=== PATIENT | female | born 1970 | race Caucasian/White ===

== ENCOUNTER → 2019-06-17 12:21 | Outpatient (BNVA) | payer MEDICARE, MEDICAID, SELFPAY | PROVIDERS: Family Provider Internal Medicine; PCP Internal Medicine; Visit Provider Nurse Practitioner Family | DX: R35.0 Frequency of micturition (principal); N39.0 Urinary tract infection, site not specified; B95.2 Enterococcus as the cause of diseases classified elsewhere | CPT/HCPCS: 81003; 87086 ==

== ENCOUNTER → 2019-09-16 15:50 | Outpatient (BNVA) | payer MEDICARE, MEDICAID, SELFPAY | PROVIDERS: Family Provider Internal Medicine; PCP Internal Medicine; Referring Provider Family Medicine; Visit Provider Family Medicine | DX: R94.4 Abnormal results of kidney function studies (principal) | CPT/HCPCS: 80053; 85007; 85027 ==

== ENCOUNTER 2019-11-04 13:48 | Outpatient (CLI) | payer MEDICARE, MEDICAID, SELFPAY ==
--- NOTE | 2019-11-04 13:55 | US_ITS ---
WS: [id number] ULTRASOUND RENAL TECHNIQUE: Ultrasound examination of both kidneys. CLINICAL INFORMATION: IMPAIRED RENAL FUNCTION COMPARISON: None. FINDINGS: RIGHT: Right kidney is normal in size and appearance. Echogenicity: Normal. Cortical thickness: 1.0 cm; Normal. Hydronephrosis: None. Perinephric fluid: None. Right kidney measures: 12.2 cm x 4.4 cm x 3.2 cm. LEFT: Moderate left hydronephrosis. Dilation of the renal pelvis and UPJ Echogenicity: Normal. Cortical thickness: 1.0 cm; Normal. Hydronephrosis: Moderate Perinephric fluid: None. Left kidney measures: 11.5 cm x 4.3 cm x 4.0 cm. Normal visualized aorta. US/US renal BI* [id number] IMPRESSION: 1. Moderate hydronephrosis left kidney with dilated renal pelvis. This could b e further evaluated with CT abdomen pelvis to evaluate for distal obstruction. 2. No hydronephrosis in right kidney. 3. Normal bladder.
== END 2019-11-04 13:49 | disposition home or self-care (01) ==
LOC: RAD 13:52
PROVIDERS: Family Provider Internal Medicine; PCP Internal Medicine; Visit Provider Nurse Practitioner Family
DX: R94.4 Abnormal results of kidney function studies (principal); N13.30 Unspecified hydronephrosis
CPT/HCPCS: 76770

== ENCOUNTER 2019-11-12 13:44 | Outpatient (CLI) | payer MEDICARE, MEDICAID, SELFPAY ==
--- NOTE | 2019-11-12 13:54 | CT_ITS ---
WS: [id number] CT ABDOMEN PELVIS TECHNIQUE: Noncontrast CT of the abdomen and pelvis with coronal and sagittal reformatted images. CLINICAL INFORMATION: HYDRONEPHROSIS, LEFT COMPARISON: None. DLP: 1053.[address] scans at [facility] use at least one of these dose optimization techniques: automat ed exposure control; mA and/or kV adjustment per patient size (includes targeted exams where dose is matched to clinical indication); or iterative reconstruction. FINDINGS: Mild hepatomegaly and splenomegaly. Cholecystectomy clips. Lung bases are well aerated. Normal GE dane ction. Tiny fat-containing umbilical hernia. No hydronephrosis in right kidney. Right ureter is decompressed. Persistent moderate left hydronephro sis similar in appearance to the prior ultrasound. Dilatation of the renal pelvis and proximal UPJ. L eft ureter is difficult to visualize but appears decompressed. Pelvic phleboliths. No evidence of obs tructing ureteral calculus. Findings suspicious for UPJ stricture. No evidence of small or large bowel obstruction. No other significant findings. CT/CT kidney stone [id number] IMPRESSION: 1. Moderate left hydronephrosis with dilatation of the left renal pelvis and U PJ suspicious for UPJ stricture or stenosis. Left ureter appears decompressed. Consider urology consultation. 2. No obstructing renal or ureteral calculi. 3. Mild hepatomegaly and splenomegaly. 4. No other significant findings.
== END 2019-11-12 13:45 | disposition home or self-care (01) ==
LOC: RADWPI 13:49
PROVIDERS: Family Provider Internal Medicine; PCP Internal Medicine; Visit Provider Nurse Practitioner Family
DX: N13.30 Unspecified hydronephrosis (principal); R16.2 Hepatomegaly with splenomegaly, not elsewhere classified
CPT/HCPCS: 74176

== ENCOUNTER 2019-11-27 13:27 | Outpatient (CLI) | payer MEDICARE, MEDICAID, SELFPAY ==
--- NOTE | 2019-11-27 13:33 | MM_ITS ---
WS: [id number] Bilateral screening digital mammogram, 11/27/2019 Clinical Data: SCREENING Comparison: 02/13/2014 Findings: The breast parenchymal pattern shows heterogeneous density No spiculated masses or clustered calcific ations are seen. There are no secondary signs of carcinoma. MM/[place] [id number] Impression: 1. Negative bilateral mammogram unchanged. 2. Recommend annual screening mammograms. BIRADS: 1-Negative FOLLOW UP: 1 Year Follow-up The CAD radio program checker was used.
== END 2019-11-27 13:28 | disposition home or self-care (01) ==
LOC: RADSHAW 13:30
PROVIDERS: PCP Internal Medicine; Visit Provider Nurse Practitioner Family
DX: Z12.31 Encounter for screening mammogram for malignant neoplasm of breast (principal)
CPT/HCPCS: 77067

== ENCOUNTER → 2019-12-03 13:46 | Outpatient (BNVA) | payer MEDICARE, MEDICAID, SELFPAY | PROVIDERS: PCP Internal Medicine; Visit Provider Urology | DX: N39.0 Urinary tract infection, site not specified (principal); N13.5 Crossing vessel and stricture of ureter without hydronephrosis; F17.210 Nicotine dependence, cigarettes, uncomplicated | CPT/HCPCS: 81001 ==

== ENCOUNTER 2019-12-23 11:59 | Outpatient (CLI) | payer MEDICARE, MEDICAID, SELFPAY ==
--- NOTE | 2019-12-23 12:06 | NMR_ITS ---
PROCEDURE INFORMATION: Exam: AL Kidney Imaging with Vascular Flow and Function, Single Study, with Pharmacological Intervention Exam date and time: 12/23/2019 12:07 PM Age: 49 years old Clinical indication: Condition or disease; Other: Ureteropelvic junction obstruction, left; Prior surgery; Surgery type: Hysterectomy cholecystectomy TECHNIQUE: Imaging protocol: Kidney imaging morphology with angiographic images were obtained after diuretic or MAAME inhibitor was administered and additional planar images were obtained. after radiopharmaceutical administration. This radiotracer utilized for calculation of the GFR. Radiopharmaceutical: 10.3 mCi tc99m DTPA iv COMPARISON: CT kidney stone [id number] 11/12/2019 2:01 PM FINDINGS: Medications: The Lasix renogram was performed using 20 mg of Lasix at 10 minutes Kidneys: Renal perfusion is symmetric, 51% to the left kidney and 49% of the right. However renal uptake is asymmetric with 42% on the left and 58% on the right. Excretion from the left kidney is slightly prolonged relative to the right with T1 half of 95 minutes. Left renal function: Left 42 % at 2 to 3 minutes. Right renal function: Right 58 % at 2 to 3 minutes. Left renal GFR: Left calculated GFR (ml/min) is 51. Right renal GFR: Right calculated GFR (ml/min) is 71. Post Lasix Left Kidney: Left T1/2 undefined after Lasix, flat curve. Post Lasix Right kidney: Right T1/2 is 95 minutes after Lasix. Visual analysis of the kidneys indicates diminished left renal concentration and excretion greater than reflected in the calculated values. There is no significant diuresis with Lasix. Limitations: Both the liver and spleen are enlarged and partially overlap the kidneys. This technically limits isolating the renal activity NM/NM renal flow w pharm [id number] IMPRESSION: Diminished left renal function, limiting excretion No significant defect of diuresis on the left kidney. Right renal excretion is normal
== END 2019-12-23 12:00 | disposition home or self-care (01) ==
PROVIDERS: PCP Internal Medicine; Visit Provider Urology
DX: N13.5 Crossing vessel and stricture of ureter without hydronephrosis (principal)
CPT/HCPCS: 78708; A9539

== ENCOUNTER 2020-06-16 15:23 | Emergency (ER) | payer MEDICARE, MEDICAID, SELFPAY ==
[2020-06-16 15:34] VITALS: BP 102/66; PULSE 78; RESP 16; TEMP 36.6; O2SAT 99; BMI 37.8
--- NOTE | 2020-06-16 17:12 | W.ED.GENADLT ---
Documented by User: PASHA Flores 06/16/20 20:30 HPI - General Adult General: Chief complaint: General Medical Stated complaint: high potassium/abnormal labs from primary DR. Time Seen by Provider: 06/16/20 17:11 History of Present Illness: HPI narrative: Patient is a 49-year-old female who comes to the ED because her support group manager saw her yesterday and performed labs and they showed hyperkalemia. Past medical history of hypertension, GERD and kidney stones. 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 patient saw her support group manager yesterday and they removed a stent from one of her kidneys. She denies any current symptoms while here in the ED and states she feels normal. She states that last night she did urinate a lot throughout the night. Denies any blood in the urine last night or pain when she urinated last night. Denies flank pain, dysuria, hematuria, fever, chills, chest pain, shortness of breath, heart palpitations, abdominal pain, nausea/vomiting, diarrhea or blood in stool. Associated symptoms: Deny chest pain, dyspnea, headache(s), nausea, rash, palpitations or vomiting Review of Systems Narrative: Patient was sent here due to hyperkalemia lab. She reports no current symptoms. Const: Denies: fever(s), chills or fatigue Eyes: Denies: change in vision or eye discomfort ENMT: Denies: throat pain, odynophagia, nasal discharge or nasal congestion Card: Denies: chest pain, palpitations, edema, swelling of feet/ankles, dyspnea on exertion or orthopnea Resp: Denies: dyspnea, productive cough or non-productive cough GI: Denies: abdominal pain, nausea, vomiting, diarrhea, constipation or hematochezia : Denies: flank pain, dysuria or hematuria Musc: Denies: neck pain, back pain or extremity swelling Skin/Breast: Denies: rash or new lesions Neuro: Denies: headache(s), numbness in extremities or weakness in extremities [facility] PFSH: Medical History GERD (gastroesophageal reflux disease) History of hepatitis C Type 3a. 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 Has had 3 surgeries with recurrence of the fistula. Evaluated at [facility] in 2018 and declined further treatment. Recurrent UTI Smoking Ureteropelvic junction (UPJ) obstruction, left Surgical History H/O total vaginal hysterectomy (02/11/19) TVH, BSO, Anterior colporrhaphy. [place] [facility] [place]. H/O tubal ligation (~2007) Performed in [place] H/O vaginal surgery Reports 3 different perineal/vaginal repairs for treatment of rectovaginal fistula. First surgery performed in [place], [place]. History of liver biopsy (~2007) Performed in [place]. Hx laparoscopic cholecystectomy (~2008) Performed in [place], [place]. Family History Grandmother Hypertension Mother , at age 66 Hypertension Heart attack Father CAD (coronary artery disease) Grandfather CAD (coronary artery disease) Sister Diabetes Social History Smoking and tobacco status: current every day smoker Alcohol intake: current Alcohol intake frequency: holidays/special occasions only Adopted: No Marital status: Current occupational status: disabled History of recent travel: No Current gender identity: Female Physical Exam Const: COMMON NORMALS: no acute distress, patient oriented x3, healthy appearing and alert GENERAL APPEARANCE: cooperative and comfortable HENMT: COMMON NORMALS: normocephalic HEAD & SCALP: normocephalic MOUTH: Normal oral and palatal mucosa present THROAT: posterior oropharynx normal and uvula midline Eye: COMMON NORMALS: Equal, round and reactive pupils present and conjunctivae normal CONJUNCTIVA: Yes conjunctivae normal PUPIL: Yes Equal, round and reactive pupils present Neck/C-Spine: COMMON NORMALS: supple GENERAL: Yes normal visual inspection Resp: COMMON NORMALS: normal respiratory effort, No retractions, No use of accessory muscles and clear to auscultation bilaterally AUSCULTATION: clear to auscultation bilaterally Cardio: COMMON NORMALS: regular rate, regular rhythm, S1 normal heart sound present, S2 normal heart sound present, No gallops present (Cardio), No clicks present (Cardio), No murmurs present (Cardio) and Peripheral pulses 2+ throughout RATE: regular rate RHYTHM: regular rhythm HEART SOUNDS: S1 normal heart sound present and S2 normal heart sound present PERIPHERAL PULSES: Peripheral pulses 2+ throughout GI: COMMON NORMALS: Normal to inspection, nondistended, normoactive bowel sounds present, Soft to palpation, non-tender and no masses PALPATION: Yes Soft to palpation : COMMON NORMALS: Yes no CVA tenderness BLADDER/KIDNEY EXAM: Yes no CVA tenderness Back/Pelvis: COMMON NORMALS: no CVA tenderness Extremity: COMMON NORMALS: normal to inspection and no pedal edema Neuro: COMMON NORMALS: patient oriented x3 and moves all extremities SENSORIUM/ORIENTATION: Yes alert Skin: GENERAL SKIN EXAM: dry skin Course Vital Signs: Vital signs: Vital Signs Temperature 97.9 F 06/16/20 15:34 Pulse Rate 71 06/16/20 18:31 Respiratory Rate 18 06/16/20 18:31 Blood Pressure 124/71 06/16/20 18:31 Pulse Oximetry 99 06/16/20 18:31 MDM - General Adult MDM Narrative: Medical decision making narrative: Patient is a 49-year-old female comes to the ED because her support group manager told her her the labs performed yesterday showed hyperkalemia. Patient comes to the ED with no symptoms and says she feels completely normal and has no complaints. EKG showed normal sinus rhythm at 66 bpm and there were some larger spike T waves in lead II of her EKG. CBC was unremarkable. Sodium 131, potassium 6.4 and creatinine of 2.2. Patient was refusing IV. I discussed patient case with Dr. Cramer and he was going to take over case due to acuity of elevated potassium levels. I went and spoke with patient told her that Will be coming to see her. She agreed to see Dr. Griffin and to speak with him but she did state that she would like to go home and does not want to get any further treatment and feels normal for discharge. I explained to her the seriousness of elevated potassium and she understood the risks. Dr. Cramer then came in and spoke with patient about care plan. Lab Data: Labs: Lab Results 06/16/20 06/16/20 06/16/20 Range/Units 18:08 18:26 18:26 WBC 5.8 (4.0-10.0) 10^3/ uL RBC 4.09 L (4.1-5.3) 10^6/u L Hgb 11.8 (11.5-15.3) g/dL Hct 36.6 L (37.0-47.0) % MCV 89.5 (81-99) fL MCH 28.9 (28.0-34.0) pg MCHC 32.2 (30.0-36.0) g/dL RDW 12.8 (12.1-15.1) % Plt Count 113 L (130-400) 10^3/c mm MPV 12.0 H (7.4-10.4) fL Neut % (Auto) 63.2 % Lymph % (Auto) 25.3 % [place] % (Auto) 4.0 % Eos % (Auto) 6.7 % Baso % (Auto) 0.3 % Neut # (Auto) 3.65 (1.8-7.7) 10^3/u L Lymph # (Auto) 1.5 (0.8-4.8) 10^3/u L [place] # (Auto) 0.2 (0.2-0.9) 10^3/u L Eos # (Auto) 0.4 (0.0-0.8) 10^3/u L Baso # (Auto) 0.0 (0.0-0.1) 10^3/u L Nucleated RBC % (a uto) 0 % Nucleated RBCs # 0.0 /100WBC Sodium 131 L (136-145) mmol/L Potassium 6.4 H (3.5-5.1) mmol/L Chloride 104 (98-107) mmol/L Carbon Dioxide 21 L (22-29) mmol/L Anion Gap 12.4 (5-19) BUN 24 H (6-20) mg/dL Creatinine 2.2 H (0.5-0.9) mg/dL GFR Calculation 23.8 L (90-130) mL/min Glucose 91 (65-115) mg/dL Calculated Osmolal ity 276 L (285-295) mOsm/k g Calcium 9.3 (8.5-10.5) mg/dL Phosphorus 4.5 (2.5-4.5) mg/dL Magnesium 1.7 (1.7-2.3) mg/dL Total Bilirubin 0.2 (0.15-1.2) mg/dL AST 15 (0-32) U/L ALT 13 (0-33) U/L Alkaline Phosphata se 116 H (35-105) IU/L Total Protein 8.1 (6.6-8.7) g/dL Albumin 4.4 (3.5-5.2) g/dL Globulin 3.7 (1.3-4.6) g/dL HCG, Qual (Negative) Urine Color Yellow (Yellow) Urine Appearance Clear (CLEAR) Urine pH 5 (5-7) Ur Specific Gravit y 1.015 (1.005-1.030) Urine Protein Neg (Negative) Urine Glucose (UA) Norm (Normal) Urine Ketones Negative (Negative) Urine Blood Neg (Negative) Urine Nitrate Negative (Negative) Urine Bilirubin Neg (Negative) Urine Urobilinogen Norm (Negative) mg/dL Ur Leukocyte Angelica ase Negative (Negative) Urine RBC None (0-2) /hpf Urine WBC 0-4 H (0-5) /hpf Ur Squamous Epith Cells 10-15 H (0-5) /hpf Amorphous Sediment Not Reportable Urine Bacteria Trace (NONE) /hpf 06/16/20 Range/Units 18:26 WBC (4.0-10.0) 10^3/ uL RBC (4.1-5.3) 10^6/u L Hgb (11.5-15.3) g/dL Hct (37.0-47.0) % MCV (81-99) fL MCH (28.0-34.0) pg MCHC (30.0-36.0) g/dL RDW (12.1-15.1) % Plt Count (130-400) 10^3/c mm MPV (7.4-10.4) fL Neut % (Auto) % Lymph % (Auto) % [place] % (Auto) % Eos % (Auto) % Baso % (Auto) % Neut # (Auto) (1.8-7.7) 10^3/u L Lymph # (Auto) (0.8-4.8) 10^3/u L [place] # (Auto) (0.2-0.9) 10^3/u L Eos # (Auto) (0.0-0.8) 10^3/u L Baso # (Auto) (0.0-0.1) 10^3/u L Nucleated RBC % (a uto) % Nucleated RBCs # /100WBC Sodium (136-145) mmol/L Potassium (3.5-5.1) mmol/L Chloride (98-107) mmol/L Carbon Dioxide (22-29) mmol/L Anion Gap (5-19) BUN (6-20) mg/dL Creatinine (0.5-0.9) mg/dL GFR Calculation (90-130) mL/min Glucose (65-115) mg/dL Calculated Osmolal ity (285-295) mOsm/k g Calcium (8.5-10.5) mg/dL Phosphorus (2.5-4.5) mg/dL Magnesium (1.7-2.3) mg/dL Total Bilirubin (0.15-1.2) mg/dL AST (0-32) U/L ALT (0-33) U/L Alkaline Phosphata se (35-105) IU/L Total Protein (6.6-8.7) g/dL Albumin (3.5-5.2) g/dL Globulin (1.3-4.6) g/dL HCG, Qual Negative (Negative) Urine Color (Yellow) Urine Appearance (CLEAR) Urine pH (5-7) Ur Specific Gravit y (1.005-1.030) Urine Protein (Negative) Urine Glucose (UA) (Normal) Urine Ketones (Negative) Urine Blood (Negative) Urine Nitrate (Negative) Urine Bilirubin (Negative) Urine Urobilinogen (Negative) mg/dL Ur Leukocyte Angelica ase (Negative) Urine RBC (0-2) /hpf Urine WBC (0-5) /hpf Ur Squamous Epith Cells (0-5) /hpf Amorphous Sediment Urine Bacteria (NONE) /hpf EKG Data^: EKG 1: Attestation: I personally reviewed and interpreted this EKG as follows: EKG interpretation date: 06/16/20 Interpretation: Normal sinus rhythm, 66 bpm, larger spiked T waves in lead II. Discharge Plan Discharge Patient Disposition: Left Against Medical Advice Clinical Impression: Acute hyperkalemia Condition: Serious Prescriptions: No Action albuterol sulfate 90 mcg/actuation HFA aerosol inhaler 2 puff inhalation Q6H PRN (Reason: shortness of breath or wheezing) Qty: 8.5 RF: 0 lisinopril 20 mg tablet 20 mg PO DAILY@1000 RF: 0 pantoprazole 40 mg tablet,delayed release (DR/EC) 40 mg PO DAILY@1000 RF: 0 buprenorphine-naloxone [Suboxone] 2-0.5 mg film 1 film BUCCAL BID@1000,2200 RF: 0 hydroxyzine HCl 50 mg tablet 50 mg PO TID@10,12,22 RF: 0 diphenhydramine HCl [Benadryl] 25 mg capsule 25 mg PO TID PRN (Reason: Allergy Symptoms) RF: 0 spironolactone 25 mg tablet 25 mg PO DAILY@1000 RF: 0 omega-3 fatty acids [Fish Oil Concentrate] 1,000 mg capsule 1,000 mg PO DAILY@1000 RF: 0 psyllium husk [Daily Fiber] 0.4 gram capsule 0.4 gm PO DAILY@1000 RF: 0 tizanidine 4 mg capsule 4 mg PO BID@1000,2200 RF: 0 Vitamin B-12 1 tab PO DAILY@1000 RF: 0 magnesium 1 tab PO DAILY@1000 RF: 0 Advair Diskus 250-50 mcg/dose blister with device 1 inh inhalation BID@999,2199 RF: 0 estradiol 1 mg tablet 1 mg PO DAILY@1000 RF: 0 ondansetron HCl 8 mg tablet 8 mg PO Q8H PRN (Reason: nausea/vomiting) RF: 0 Referrals: Lilliana Penny DO [Primary Care Provider] - Coding Level of Care Code ED Poll Clerk for Chg Fwd Exam Comprehensive Documented by User: Alex Cramer MD 06/16/20 23:27 HPI - General Adult General: Chief complaint: General Medical Stated complaint: high potassium/abnormal labs from primary DR. Time Seen by Provider: 06/16/20 17:11 PFSH ED PFSH: Medical History GERD (gastroesophageal reflux disease) History of hepatitis C Type 3a. 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 Has had 3 surgeries with recurrence of the fistula. Evaluated at [facility] in 2018 and declined further treatment. Recurrent UTI Smoking Ureteropelvic junction (UPJ) obstruction, left Surgical History H/O total vaginal hysterectomy (02/11/19) TVH, BSO, Anterior colporrhaphy. [place] [facility] [place]. H/O tubal ligation (~2007) Performed in [place] H/O vaginal surgery Reports 3 different perineal/vaginal repairs for treatment of rectovaginal fistula. First surgery performed in [place], [place]. History of liver biopsy (~2007) Performed in [place]. Hx laparoscopic cholecystectomy (~2008) Performed in [place], [place]. Family History Grandmother Hypertension Mother , at age 66 Hypertension Heart attack Father CAD (coronary artery disease) Grandfather CAD (coronary artery disease) Sister Diabetes Social History Smoking and tobacco status: current every day smoker Alcohol intake: current Alcohol intake frequency: holidays/special occasions only Adopted: No Marital status: Current occupational status: disabled History of recent travel: No Current gender identity: Female Course Vital Signs: Vital signs: Vital Signs Temperature 97.9 F 06/16/20 15:34 Pulse Rate 71 06/16/20 18:31 Respiratory Rate 18 06/16/20 18:31 Blood Pressure 124/71 06/16/20 18:31 Pulse Oximetry 99 06/16/20 18:31 MDM - General Adult MDM Narrative: Medical decision making narrative: I accepted care of this patient from the midlevel provider. The nurse immediately told me she wants to leave. I went to discuss with the patient to discuss with her the potassium is 6.4 which is critical and requires urgent medications to reduce this as it can cause sudden cardiac . She said she does not care and feels fine and wants to leave. I discussed with her this would be an AGAINST MEDICAL ADVICE discharge and said the risks could be severe and even cause . She is alert and oriented x4 and understands and accepts those risks and signed AGAINST MEDICAL ADVICE and left on her own. She did not want to get an IV nor have any other work-up done. She says she felt bad yesterday and was supposed to come to the ED however did not. She came in today but she feels better than she did yesterday so she wants to leave. I recommend she return to the hospital at any time for further evaluation and treatment. She signed and left AMA. KD Amezcua present during the discussion Lab Data: Labs: Lab Results 06/16/20 06/16/20 06/16/20 Range/Units 18:08 18:26 18:26 WBC 5.8 (4.0-10.0) 10^3/ uL RBC 4.09 L (4.1-5.3) 10^6/u L Hgb 11.8 (11.5-15.3) g/dL Hct 36.6 L (37.0-47.0) % MCV 89.5 (81-99) fL MCH 28.9 (28.0-34.0) pg MCHC 32.2 (30.0-36.0) g/dL RDW 12.8 (12.1-15.1) % Plt Count 113 L (130-400) 10^3/c mm MPV 12.0 H (7.4-10.4) fL Neut % (Auto) 63.2 % Lymph % (Auto) 25.3 % [place] % (Auto) 4.0 % Eos % (Auto) 6.7 % Baso % (Auto) 0.3 % Neut # (Auto) 3.65 (1.8-7.7) 10^3/u L Lymph # (Auto) 1.5 (0.8-4.8) 10^3/u L [place] # (Auto) 0.2 (0.2-0.9) 10^3/u L Eos # (Auto) 0.4 (0.0-0.8) 10^3/u L Baso # (Auto) 0.0 (0.0-0.1) 10^3/u L Nucleated RBC % (a uto) 0 % Nucleated RBCs # 0.0 /100WBC Sodium 131 L (136-145) mmol/L Potassium 6.4 H (3.5-5.1) mmol/L Chloride 104 (98-107) mmol/L Carbon Dioxide 21 L (22-29) mmol/L Anion Gap 12.4 (5-19) BUN 24 H (6-20) mg/dL Creatinine 2.2 H (0.5-0.9) mg/dL GFR Calculation 23.8 L (90-130) mL/min Glucose 91 (65-115) mg/dL Calculated Osmolal ity 276 L (285-295) mOsm/k g Calcium 9.3 (8.5-10.5) mg/dL Phosphorus 4.5 (2.5-4.5) mg/dL Magnesium 1.7 (1.7-2.3) mg/dL Total Bilirubin 0.2 (0.15-1.2) mg/dL AST 15 (0-32) U/L ALT 13 (0-33) U/L Alkaline Phosphata se 116 H (35-105) IU/L Total Protein 8.1 (6.6-8.7) g/dL Albumin 4.4 (3.5-5.2) g/dL Globulin 3.7 (1.3-4.6) g/dL HCG, Qual (Negative) Urine Color Yellow (Yellow) Urine Appearance Clear (CLEAR) Urine pH 5 (5-7) Ur Specific Gravit y 1.015 (1.005-1.030) Urine Protein Neg (Negative) Urine Glucose (UA) Norm (Normal) Urine Ketones Negative (Negative) Urine Blood Neg (Negative) Urine Nitrate Negative (Negative) Urine Bilirubin Neg (Negative) Urine Urobilinogen Norm (Negative) mg/dL Ur Leukocyte Angelica ase Negative (Negative) Urine RBC None (0-2) /hpf Urine WBC 0-4 H (0-5) /hpf Ur Squamous Epith Cells 10-15 H (0-5) /hpf Amorphous Sediment Not Reportable Urine Bacteria Trace (NONE) /hpf 06/16/20 Range/Units 18:26 WBC (4.0-10.0) 10^3/ uL RBC (4.1-5.3) 10^6/u L Hgb (11.5-15.3) g/dL Hct (37.0-47.0) % MCV (81-99) fL MCH (28.0-34.0) pg MCHC (30.0-36.0) g/dL RDW (12.1-15.1) % Plt Count (130-400) 10^3/c mm MPV (7.4-10.4) fL Neut % (Auto) % Lymph % (Auto) % [place] % (Auto) % Eos % (Auto) % Baso % (Auto) % Neut # (Auto) (1.8-7.7) 10^3/u L Lymph # (Auto) (0.8-4.8) 10^3/u L [place] # (Auto) (0.2-0.9) 10^3/u L Eos # (Auto) (0.0-0.8) 10^3/u L Baso # (Auto) (0.0-0.1) 10^3/u L Nucleated RBC % (a uto) % Nucleated RBCs # /100WBC Sodium (136-145) mmol/L Potassium (3.5-5.1) mmol/L Chloride (98-107) mmol/L Carbon Dioxide (22-29) mmol/L Anion Gap (5-19) BUN (6-20) mg/dL Creatinine (0.5-0.9) mg/dL GFR Calculation (90-130) mL/min Glucose (65-115) mg/dL Calculated Osmolal ity (285-295) mOsm/k g Calcium (8.5-10.5) mg/dL Phosphorus (2.5-4.5) mg/dL Magnesium (1.7-2.3) mg/dL Total Bilirubin (0.15-1.2) mg/dL AST (0-32) U/L ALT (0-33) U/L Alkaline Phosphata se (35-105) IU/L Total Protein (6.6-8.7) g/dL Albumin (3.5-5.2) g/dL Globulin (1.3-4.6) g/dL HCG, Qual Negative (Negative) Urine Color (Yellow) Urine Appearance (CLEAR) Urine pH (5-7) Ur Specific Gravit y (1.005-1.030) Urine Protein (Negative) Urine Glucose (UA) (Normal) Urine Ketones (Negative) Urine Blood (Negative) Urine Nitrate (Negative) Urine Bilirubin (Negative) Urine Urobilinogen (Negative) mg/dL Ur Leukocyte Angelica ase (Negative) Urine RBC (0-2) /hpf Urine WBC (0-5) /hpf Ur Squamous Epith Cells (0-5) /hpf Amorphous Sediment Urine Bacteria (NONE) /hpf Discharge Plan Discharge Patient Disposition: Left Against Medical Advice Clinical Impression: Acute hyperkalemia Condition: Serious Prescriptions: No Action albuterol sulfate 90 mcg/actuation HFA aerosol inhaler 2 puff inhalation Q6H PRN (Reason: shortness of breath or wheezing) Qty: 8.5 RF: 0 lisinopril 20 mg tablet 20 mg PO DAILY@1000 RF: 0 pantoprazole 40 mg tablet,delayed release (DR/EC) 40 mg PO DAILY@1000 RF: 0 buprenorphine-naloxone [Suboxone] 2-0.5 mg film 1 film BUCCAL BID@999,2199 RF: 0 hydroxyzine HCl 50 mg tablet 50 mg PO TID@,, RF: 0 diphenhydramine HCl [Benadryl] 25 mg capsule 25 mg PO TID PRN (Reason: Allergy Symptoms) RF: 0 spironolactone 25 mg tablet 25 mg PO DAILY@999 RF: 0 omega-3 fatty acids [Fish Oil Concentrate] 1,000 mg capsule 1,000 mg PO DAILY@1000 RF: 0 psyllium husk [Daily Fiber] 0.4 gram capsule 0.4 gm PO DAILY@999 RF: 0 tizanidine 4 mg capsule 4 mg PO BID@999,2199 RF: 0 Vitamin B-12 1 tab PO DAILY@1000 RF: 0 magnesium 1 tab PO DAILY@1000 RF: 0 Advair Diskus 250-50 mcg/dose blister with device 1 inh inhalation BID@999,2199 RF: 0 estradiol 1 mg tablet 1 mg PO DAILY@999 RF: 0 ondansetron HCl 8 mg tablet 8 mg PO Q8H PRN (Reason: nausea/vomiting) RF: 0 Referrals: Lilliana Penny DO [Primary Care Provider] - Coding Level of Care Code ED Poll Clerk for Chg Fwd Exam Comprehensive
--- NOTE | 2020-06-16 17:16 | ECG_ITS ---
[facility] Test Date: 2020-06-16 Pat Name: Tricia Ramirez Department: Room: Gender: Female Sound Cutter: : 1970 Requested By: Javi Morales Order Number: [id number] Clinton MD: ANTOINETTE WILBURN Measurements Intervals [place] Rate: 66 P: 35 WA: 168 QRS: 49 QRSD: 92 T: 64 QT: 366 QTc: 384 Interpretive Statements SINUS RHYTHM No previous ECG available for comparison Electronically Signed On 06-16-2020 20:07:06 [employer] BOIL[employer] by ANTOINETTE WILBURN [id number]
[2020-06-16 18:31] VITALS: BP 124/71; PULSE 71; RESP 18; O2SAT 99
[2020-06-16 19:09] LABS: Basophils % 0.3 %; Eosinophils # 0.4 10^3/uL (0.0-0.8); Eosinophils % 6.7 %; Hematocrit 36.6 % (37.0-47.0); Hemoglobin 11.8 g/dL (11.5-15.3); Lymphocytes # 1.5 10^3/uL (0.8-4.8); Lymphocytes % 25.3 %; Mean Corpuscular HGB Conc 32.2 g/dL (30.0-36.0); Mean Corpuscular Hemoglobin 28.9 pg (28.0-34.0); Mean Corpuscular Volume 89.5 fL (81-99); Monocytes # 0.2 10^3/uL (0.2-0.9); Neutrophils # 3.65 10^3/uL (1.8-7.7); Neutrophils % 63.2 %; Nucleated Red Blood Cells % 0 %; Platelet Count 113 10^3/cmm (130-400); Red Blood Count 4.09 10^6/uL (4.1-5.3); Red Cell Distribution Width 12.8 % (12.1-15.1); White Blood Count 5.8 10^3/uL (4.0-10.0)
[2020-06-16 19:12] LABS: Bilirubin Urine Neg (Negative); Blood Urine Neg (Negative); Glucose Urine UA Norm (Normal); Ketones Urine Negative (Negative); Leukocyte Esterase Urine Negative (Negative); Nitrate Urine Negative (Negative); Protein Urine Neg (Negative); Specific Gravity, Urine 1.015 (1.005-1.030); Urine Appearance Clear (CLEAR); Urine Color Yellow (Yellow); Urobilinogen Urine Norm (Negative); pH Urine 5 (5-7)
[2020-06-16 19:25] LABS: HCG, Serum Qual Negative (Negative)
[2020-06-16 19:26] LABS: Add Urine Culture? No; Bacteria Urine TRACE /hpf; WBC Urine 0-4 /hpf (0-5)
[2020-06-16 19:34] LABS: Alanine Aminotransferase 13 U/L (0-33); Albumin Level 4.4 g/dL (3.5-5.2); Alkaline Phosphatase 116 IU/L (35-105); Anion Gap 12.4 (5-19); Aspartate Amino Transferase 15 U/L (0-32); Blood Urea Nitrogen 24 mg/dL (6-20); Calcium 9.3 mg/dL (8.5-10.5); Carbon Dioxide 21 mmol/L (22-29); Chloride 104 mmol/L (98-107); Globulin 3.7 g/dL (1.3-4.6); Glomerular Filtration Rate 23.8 mL/min (90-130); Glucose 91 mg/dL (65-115); Magnesium 1.7 mg/dL (1.7-2.3); Osmolality Calculated 276 mOsm/kg (285-295); Phosphorus 4.5 mg/dL (2.5-4.5); Potassium 6.4 mmol/L (3.5-5.1); Sodium 131 mmol/L (136-145); Total Bilirubin 0.2 mg/dL (0.15-1.2); Total Protein 8.1 g/dL (6.6-8.7)
[2020-06-16 19:44] LABS: Creatinine Clr Calc Pharmacy 35.9088
--- NOTE | 2020-06-16 20:19 | PC.NURSE ---
pt was informed of high K+ levels and was educated of the potential dangers of this by myself and doctor Shoaib. pt refused an IV and admission. pt stated i don't want an IV, i am not staying in this hospital, i would rather .
== END 2020-06-16 20:13 | disposition left against medical advice (07) ==
PROVIDERS: Physician Assistant; Emergency Provider Family Medicine; PCP Internal Medicine
DX: E87.5 Hyperkalemia (principal); Z53.21 Procedure and treatment not carried out due to patient leaving prior to being seen by health care provider; Z86.19 Personal history of other infectious and parasitic diseases; I10 Essential (primary) hypertension; F17.210 Nicotine dependence, cigarettes, uncomplicated
CPT/HCPCS: 80053; 81001; 83735; 84100; 84703; 85025; 93005; 99283

== ENCOUNTER 2020-12-31 14:11 | Outpatient (CLI) | payer MEDICARE, MEDICAID, SELFPAY ==
--- NOTE | 2020-12-31 14:36 | XR_ITS ---
WS: [id number] LEFT FOOT: 3 VIEW(S) TECHNIQUE: AP, oblique and lateral. HISTORY: LEFT FOOT PAIN COMPARISON: None available. No acute fracture or dislocation. Normal tarsal/metatarsal alignment. No soft tissue abnormality or bone destruction. Os trigonum is noted. XR/XR foot LT min 3V* [id number] IMPRESSION: Normal LEFT foot.
== END 2020-12-31 14:12 | disposition home or self-care (01) ==
LOC: RADWPI 14:20
PROVIDERS: PCP Family Medicine; Visit Provider Family Medicine
DX: M72.2 Plantar fascial fibromatosis (principal); M79.672 Pain in left foot
CPT/HCPCS: 73630

== ENCOUNTER 2021-02-25 13:36 | Outpatient (CLI) | payer MEDICARE, MEDICAID, SELFPAY ==
--- NOTE | 2021-02-25 13:45 | MM_ITS ---
WS: [id number] BILATERAL SCREENING DIGITAL MAMMOGRAM WITH CAD HISTORY: SCREENING COMPARISON: 11/27/2019 and 02/13/2014 Bilateral CC and MLO views submitted. Computer aided detection analyzed. Breast composition: There are scattered areas of fibroglandular density. No suspicious masses, microc alcifications or architectural distortion. Scattered asymmetries in the upper-outer quadrant of each breast are stable. MM/[place] [id number] IMPRESSION: BI-RADS: 2-Benign FOLLOW UP: 1 Year Follow-up
== END 2021-02-25 13:37 | disposition home or self-care (01) ==
LOC: RADSHAW 13:37
PROVIDERS: PCP Family Medicine; Visit Provider Family Medicine
DX: Z12.31 Encounter for screening mammogram for malignant neoplasm of breast (principal)
CPT/HCPCS: 77067